=== PATIENT | male | born 1970 | race Caucasian/White ===

== ENCOUNTER 2020-01-24 16:14 | Emergency (ER) | payer MEDICARE, SELFPAY ==
[2020-01-24 16:33] VITALS: BP 112/91; PULSE 60; RESP 14; TEMP 37.2; O2SAT 99
--- NOTE | 2020-01-24 17:29 | ED.LOWEXIN ---
HPI - Extremity Injury (Lower) General Chief Complaint: Extremity Injury, Lower Stated Complaint: left leg pain Time Seen by Provider: 01/24/20 17:29 Source: patient and RN notes reviewed Mode of arrival: ambulatory Limitations: no limitations History of Present Illness HPI Narrative: 49-year-old male presents concern for left leg pain. Reports pain starts in the left posterior calf, goes down to be left Achilles area and radiates back of his left leg. Reports pain worsens with walking and is tender to touch. He denies redness, swelling. Denies any known injury, however reports he is very active in his work. Reports he has been using an Lucien wrap which offer some relief. MD complaint: other (Leg pain) Related Data Allergies Allergy/AdvReac Type Severity Reaction Status Date / Time No Known Allergies Allergy Verified 01/24/20 16:50 Review of Systems Review of Systems: Narrative: CONSTITUTIONAL: Denies malaise, chills, sweats, or fever. CARDIOVASCULAR: Denies chest pain, palpitations, or edema. RESPIRATORY: Denies cough or dyspnea. SKIN: Denies redness, swelling, bruising, open skin MUSCULOSKELETAL: Reports left leg pain NEUROLOGIC: Denies numbness, weakness All systems reviewed & are unremarkable except as noted in HPI and below PMFSH Past Medical History Medical History (Updated 01/24/20 @ 17:36 by Syeda Garcia NP) Anxiety Chronic fatigue, unspecified Family history of early CAD History of CVA (cerebrovascular accident) History of hypoglycemia Social History Social History Smoking status: Current every day smoker Alcohol intake: current Comments At time of signature, agree with nursing past medical, surgical, social and family history. There is no relevant family history pertinent to the presenting complaint Exam Narrative: Exam Narrative: GENERAL: Well-appearing, well-nourished, and in no acute distress. HEAD: Normocephalic, atraumatic. EYES: PERRLA, conjunctivae clear NECK: Supple. CHEST: Speaks in full sentences. No respiratory distress. HEART: Regular rate and rhythm. Normal and equal peripheral pulses. EXTREMITIES: Left leg, knee, ankle, digits have normal strength and sensation, normal range of motion. No edema or ecchymosis. 5/5 strength with knee, ankle, digits flexion and extension. Normal sensation with sensitivity to light touch and pain. No open wounds, no skin tenting, no devitalized tissue or atrophy, no trophic changes, no obvious deformity, alignment normal, no point tenderness, nearby joints and structures intact. Distal pulses palpable and equal bilaterally, skin warm, dry, pink. Capillary refill less than 3 seconds. Pain with full extension of leg, generalized posterior knee, calf tenderness. Pain reproducible SKIN: Warm, dry, no rash. No calf erythema, warmth, edema NEURO: Alert and oriented x3. PSYCH: Normal mood and affect Course Course Emergency Course: Patient is aware of diagnosis, understands and agrees to treatment plan. Anticipatory guidance given. Patient agrees to follow-up as directed and is aware of reasons to seek care at the emergency department. Portions of this record may have been created with voice recognition software Vital Signs Vital signs: Vital Signs Temperature 98.9 F 01/24/20 16:33 Pulse Rate 60 01/24/20 16:33 Respiratory Rate 14 01/24/20 16:33 Blood Pressure 112/91 H 01/24/20 16:33 Pulse Oximetry 99 01/24/20 16:33 Temperature 98.9 F 01/24/20 16:33 Pulse Rate 60 01/24/20 16:33 Respiratory Rate 14 01/24/20 16:33 Blood Pressure 112/91 H 01/24/20 16:33 Pulse Oximetry 99 01/24/20 16:33 Reviewed. MDM - Extremity Injury (Lower) MDM Narrative Medical decision making narrative: Patients pain is consistent with musculoskeletal etiology. No signs of neurological or vascular compromise on exam. Compartments and tissues are soft without signs of compartment syndrome. Pain is felt appropriate for further evaluation on an outp
== END 2020-01-24 17:43 | disposition home or self-care (01) ==
PROVIDERS: Emergency Provider Nurse Practitioner
DX: M79.662 Pain in left lower leg (principal); F17.290 Nicotine dependence, other tobacco product, uncomplicated; J44.9 Chronic obstructive pulmonary disease, unspecified
CPT/HCPCS: 99213; G0463

== ENCOUNTER 2020-02-03 13:45 | Outpatient (CLI) | payer MEDICARE, SELFPAY ==
--- NOTE | ~2020-02-03 | MR_ITS ---
EXAMINATION: MR lumbar spine wo con DATE: 02/03/2020 17:23 INDICATION: Chronic low back pain and 5 weeks of left leg pain. TECHNIQUE: Magnetic resonance imaging (MRI) of the lumbar spine was performed without intravenous con trast. Sequences included sagittal T2-weighted FSE, sagittal T2-weighted FS FSE, sagittal T1-weighted FSE, and axial T2-weighted FSE. COMPARISON: None FINDINGS: Millimeter retrolisthesis L5 on S1. Vertebral body heights are normal. Normal marrow signal. Mild di sc desiccation with normal disc height at L4-L5. More prominent disc desiccation and moderate disc he ight loss at L5-S1 where there is also an annular fissure and posterior disc extrusion with disc mate rial bulging a few millimeter cranial and caudal to the level of the endplates. The conus medullaris terminates at T12. There is normal signal in the caudal spinal cord. Paravertebral soft tissues are u nremarkable. A millimeter T2 hyperintense likely cyst in the left kidney. The following disc levels a re specifically discussed: T12-L1: The disc does not extend beyond the endplate margin. There is mild right facet joint osteoart hritis. There is no neural foraminal stenosis. There is no central canal stenosis. L1-L2: The disc does not extend beyond the endplate margin. There is mild right and minimal left face t joint osteoarthritis. There is no neural foraminal stenosis. There is no central canal stenosis. L2-L3: The disc does not extend beyond the endplate margin. There is mild bilateral facet joint osteo arthritis. There is no neural foraminal stenosis. There is no central canal stenosis. L3-L4: The disc does not extend beyond the endplate margin. There is mild bilateral facet joint osteo arthritis. There is no neural foraminal stenosis. There is no central canal stenosis. L4-L5: Annular fissure at the right foraminal zone with associated mild disc protrusion. There is mil d bilateral facet joint osteoarthritis. There is mild bilateral neural foraminal stenosis. There is n o central canal stenosis. L5-S1: Disc is bulging with superimposed disc extrusion centered in the left paracentral region which exerts narrows the left lateral recess and exerts mass effect upon the traversing left S1 nerve root . The region of the extrusion measures approximately 2 cm medial to lateral, 8 mm AP and 10 mm cranio caudal. There is mild bilateral facet joint osteoarthritis. There is mild right and mild to moderate left neural foraminal stenosis. There is minimal central canal stenosis. IMPRESSION: 1. Moderate spondylosis at the lumbosacral junction most notable for a large left paracentral disc ex trusion which narrows the left lateral recess exerting mass effect upon the traversing left S1 nerve root. Correlate clinically for muscle weakness of plantar flexion, sensory change of the lateral foot and small toe, and depressed ankle reflex. 2. Minimal spondylosis in the more cephalad lumbar spine. Reviewed, dictated and finalized at location A. IMPRESSION: 1. Moderate spondylosis at the lumbosacral junction most notable for a large le ft paracentral disc extrusion which narrows the left lateral recess exerting ma ss effect upon the traversing left S1 nerve root. Correlate clinically for musc le weakness of plantar flexion, sensory change of the lateral foot and small to e, and depressed ankle reflex. 2. Minimal spondylosis in the more cephalad lumbar spine.
--- NOTE | 2020-02-03 14:33 | ECG_ITS ---
Measurements Intervals Ashley Rate: 74 P: 64 PA: 137 QRS: 78 QRSD: 79 T: 74 QT: 348 QTc: 387 Interpretive Statements SINUS RHYTHM WITH SINUS ARRHYTHMIA NORMAL ECG Electronically Signed On 02-03-2020 14:54:03 CDT by Guy Gordon D.O.
== END 2020-02-03 13:46 | disposition home or self-care (01) ==
PROVIDERS: PCP Family Medicine; Visit Provider Internal Medicine Cardiovascular Disease
DX: R53.83 Other fatigue (principal); M54.16 Radiculopathy, lumbar region; M79.605 Pain in left leg; M47.816 Spondylosis without myelopathy or radiculopathy, lumbar region
CPT/HCPCS: 72148; 93005

== ENCOUNTER 2020-04-06 08:25 | Outpatient (CLI) | payer MEDICARE, SELFPAY ==
--- NOTE | ~2020-04-06 | NM_ITS ---
EXAMINATION: NM paulina stress w perfusion DATE: 04/06/2020 12:22 WILDLIFE CONSERVATION OFFICER INDICATION: Dyspnea TECHNIQUE: Rest images were obtained following intravenous administration of 10 mCi Tc99m tetrofosmin (Myoview). The patient was infused intravenously with Lexiscan (regadenoson). Then, 30.8 mCi Tc99m t etrofosmin (Myoview) was administered intravenously, and stress images were obtained. Data was recons tructed into short axis and horizontal and vertical long axis SPECT images. Gated SPECT images were a lso obtained. COMPARISON: None. FINDINGS: There is no definite reversible or fixed perfusion abnormality to suggest ischemia or infar ction. There is no segmental wall motion abnormality. Left ventricular ejection fraction measures 7 2%. IMPRESSION: 1. No definite ischemia or infarct. 2. Normal left ventricular ejection fraction measuring 72%. Reviewed, dictated and finalized at location B. LIFE CONSERVATION OFFICER
--- NOTE | 2020-04-06 08:31 | ECHO_ITS ---
Patient Info Name: Van Rodriguez Age: 49 years : 1970 Gender: Male Ht: 69 in Wt: 180 lbs BSA: 2.01 m2 HR: 58 bpm BP: 109 / 72 mmHg Technical Quality: Good Exam Date: 04/06/2020 8:42 AM Exam Location: [facility] Patient Status: Outpatient Admit Date: 04/06/2020 Staff Ordering Physician: Guy Gordon DO Furnace Installer Helper: Tina Osman RCS Attending Provider: Guy Gordon DO Referring Physician: Evan FERNANDEZ; Exam Type: CA echo doppler color flow Study Info Indications - family hx/o hrt dz copd cva Complete two-dimensional, color flow and Doppler transthoracic echocardiogram is performed. Summary 1. Complete two-dimensional, color flow and Doppler transthoracic echocardiogram is performed. 2. Left ventricular chamber dimension is normal. 3. Left ventricular systolic function is normal, estimated at 60-65%. 4. The left ventricular diastolic function is normal. 5. E/e' 6 is not elevated. 6. Global longitudinal strain is normal at -20.3%. 7. No pulmonary hypertension, estimated pulmonary arterial systolic pressure is 31 mmHg. Left Ventricle E/e' 6 is not elevated. Global longitudinal strain is normal at -20.3%. Left ventricular chamber dimension is normal. Left ventricular systolic function is normal, estimated at 60-65%. The left ventricular diastolic function is normal. Right Ventricle Right ventricular chamber dimension is normal. Right ventricular systolic function is normal. Left Atria Left atrial chamber dimension is normal. Right Atria Right atrial chamber dimension is normal. Aortic Valve The aortic valve is trileaflet. There is no aortic valve stenosis. There is no aortic valve regurgitation. Pulmonic Valve There is no pulmonic regurgitation. Mitral Valve There is no mitral valve stenosis. There is no mitral valve regurgitation. Tricuspid Valve There is no tricuspid valve regurgitation. No pulmonary hypertension, estimated pulmonary arterial systolic pressure is 31 mmHg. Pericardium/Pleural There is no pericardial effusion. Inferior Vena Cava Normal inferior vena cava with >50% collapse upon inspiration consistent with normal right atrial pressure, 5 mmHg. Aorta The aortic root size at the sinus of Valsalva is normal. Left Ventricular Outflow Tract Name Value Normal LVOT 2D LVOT Diameter 2.1 cm LVOT Doppler LVOT Peak Gradient 7 mmHg LVOT Mean Gradient 3 mmHg LVOT VTI 28 cm LVOT VTI/AV VTI Ratio 1.0 LVOT Stroke Volume 96 ml LVOT CO 17.6 l/min LVOT CI 8.8 l/min/m2 Pulmonic Valve Name Value Normal PV Doppler PV Peak Gradient 3 mmHg Mitral Valve -
--- NOTE | 2020-04-06 08:31 | EST_ITS ---
Patient Info Name: Van Rodriguez Age: 49 years : 1970 Gender: Male Ht: 69 in Wt: 190 lbs BSA: 2.07 m2 Exam Date: 04/06/2020 10:38 AM Patient Status: Outpatient Admit Date: 04/06/2020 Staff Ordering Physician: Guy Gordon DO Attending Provider: Guy Gordon DO Exercise Technologist: Yesy Gray RDCS Exercise Physician: Guy Gordon DO Exam Type: CA stress paulina w NM Study Info Indications R06.00 - Dyspnea, unspecified A regadenoson stress test was performed. Summary 1. 1. Negative lexiscan stress test for ischemic ST changes by ECG criteria. 2. 2. Stable hemodynamics throughout the test. 3. 3. Nuclear scan to follow and will be reported separately. Please correlate with it. 4. 4. Patient informed of the above results. Protocol: Lexiscan Stress ECG Details Stage: REST Duration (min): 3 min : 54 sec HR (bpm): 55 SBP (mmHg): 109 DBP (mmHg): 66 Stage: REST Duration (min): 8 min : 17 sec HR (bpm): 62 SBP (mmHg): 109 DBP (mmHg): 66 Stage: STAGE 1 Duration (min): 0 min : 59 sec HR (bpm): 104 SBP (mmHg): 120 DBP (mmHg): 72 Stage: RECOVERY Duration (min): 1 min : 0 sec HR (bpm): 97 SBP (mmHg): 120 DBP (mmHg): 79 Stage: RECOVERY Duration (min): 2 min : 0 sec HR (bpm): 89 SBP (mmHg): 120 DBP (mmHg): 79 Stage: RECOVERY Duration (min): 3 min : 0 sec HR (bpm): 95 SBP (mmHg): 101 DBP (mmHg): 66 Stage: RECOVERY Duration (min): 3 min : 3 sec HR (bpm): 97 SBP (mmHg): 101 DBP (mmHg): 66 Rest HR: 62 bpm Peak HR: 107 bpm Rest Sys BP: 109 mmHg Peak Sys BP: 120 mmHg Max Pred HR: 170 bpm % Max Pred HR: 63 % Target HR: 145 bpm Max RPP: 12,840 bpm*mmHg Termination Reason: Completed protocol Cardiac Symptoms: Shortness of breath Total Time: 1 min : 0 sec Rest Mendoza BP: 66 mmHg Peak Mendoza BP: 79 mmHg Total Dose: 0.4 mg Resting ECG Sinus rhythm. Stress ECG No ST changes. Arrhythmias None. Report Signatures
== END 2020-04-06 08:26 | disposition home or self-care (01) ==
PROVIDERS: PCP Family Medicine; Visit Provider Internal Medicine Cardiovascular Disease
DX: R06.00 Dyspnea, unspecified (principal)
CPT/HCPCS: 78452; 93017; 93306; A9502; J2785

== ENCOUNTER 2020-04-26 06:54 | Outpatient (CLI) | payer MEDICARE, SELFPAY ==
--- NOTE | ~2020-04-26 | MR_ITS ---
EXAMINATION: MR cervical spine wo con EXAM DATE: 04/26/2020 08:26 INDICATION: Cervical myelopathy . TECHNIQUE: Multi-sequential, multiplanar MR images of the cervical spine were obtained without contra st. Axial T2, axial T2 MERGE sequence. Sagittal T1, T2, T2 fat saturation images also obtained. Th ere is no prior study for comparison. FINDINGS: Vertebral body and disc heights are well-maintained. There are no suspicious marrow signal abnormalit ies. The spinal cord signal intensity and intrinsic morphology is normal. Cervicomedullary junction i s normal in appearance. Paraspinal soft tissue is unremarkable. Level by level evaluation: C2-C3: Disc does not extend beyond the endplate margin. Uncovertebral joint arthropathy: None. Facet joint arthropathy: Mild. Neural foraminal stenosis: No stenosis. Central canal stenosis: No stenosis. C3-C4: Disc does not extend beyond the endplate margin. Uncovertebral joint arthropathy: None. Facet joint arthropathy: Mild to moderate left, mild right. Neural foraminal stenosis: No stenosis. Central canal stenosis: No stenosis. C4-C5: Disc does not extend beyond the endplate margin. Uncovertebral joint arthropathy: None. Facet joint arthropathy: Moderate left, mild to moderate right. Neural foraminal stenosis: No stenosis. Central canal stenosis: No stenosis. C5-C6: Disc does not extend beyond the endplate margin. Uncovertebral joint arthropathy: None. Facet joint arthropathy: Mild to moderate bilateral. Neural foraminal stenosis: No stenosis. Central canal stenosis: No stenosis. C6-C7: Disc does not extend beyond the endplate margin. Uncovertebral joint arthropathy: Mild bilateral. Facet joint arthropathy: Mild bilateral. Neural foraminal stenosis: Mild bilateral. Central canal stenosis: No stenosis. C7-T1: Disc does not extend beyond the endplate margin. Uncovertebral joint arthropathy: None. Facet joint arthropathy: None. Neural foraminal stenosis: No stenosis. Central canal stenosis: No stenosis. IMPRESSION: 1. Mild to moderate cervical facet arthropathy. Reviewed, dictated and finalized at location B. ROOM ATTENDANT
== END 2020-04-26 06:55 | disposition home or self-care (01) ==
PROVIDERS: PCP Family Medicine
DX: G95.9 Disease of spinal cord, unspecified (principal); M47.812 Spondylosis without myelopathy or radiculopathy, cervical region
CPT/HCPCS: 72141

== ENCOUNTER 2020-05-22 13:22 | Outpatient (CLI) | payer MEDICARE, SELFPAY ==
--- NOTE | ~2020-05-22 | XR_ITS ---
EXAMINATION: XR chest 2V DATE: 05/22/2020 13:34 INDICATION: Cough and weakness TECHNIQUE: PA and lateral views of the chest were obtained. COMPARISON: Chest radiograph dated 10/02/2017 FINDINGS: The lungs remain clear with no focal airspace opacities, pulmonary edema, pleural effusion or pneumot horax. The cardiomediastinal silhouette is normal. Visualized bones and soft tissues are unremarkable . IMPRESSION: 1. No acute cardiopulmonary disease. Reviewed, dictated and finalized at location A. LE DEPARTMENT WORKER
== END 2020-05-22 13:23 | disposition home or self-care (01) ==
LOC: ANHBWCIMG 13:25
PROVIDERS: PCP Family Medicine; Visit Provider Family Medicine
DX: R05 Cough (principal)
CPT/HCPCS: 71046

== ENCOUNTER 2020-10-31 14:59 | Outpatient (CLI) | payer MEDICARE, SELFPAY ==
--- NOTE | ~2020-10-31 | MR_ITS ---
EXAMINATION: MR lumbar spine wo con DATE: 10/31/2020 15:42 INDICATION: Lumbago. TECHNIQUE: Magnetic resonance imaging (MRI) of the lumbar spine was performed without intravenous con trast. Sequences included sagittal T2-weighted FSE, sagittal T2-weighted FS FSE, sagittal T1-weighted FSE, and axial T2-weighted FSE. COMPARISON: Lumbar spine MRI 02/03/2020 FINDINGS: There is 3 mm retrolisthesis of L5 on S1. Vertebral body heights are normal. There is moder ately decreased disc height at L5-S1 with endplate remodeling. The distal spinal cord signal intensit y is normal. The conus medullaris is at T12. There is a 10 mm cyst in left kidney. The following disc levels are specifically discussed: L1-L2: The disc does not extend beyond the endplate margin. There is no facet joint osteoarthritis. T here is no neural foraminal stenosis. There is no central canal stenosis. L2-L3: The disc does not extend beyond the endplate margin. There is mild bilateral facet joint osteo arthritis. There is no neural foraminal stenosis. There is no central canal stenosis. L3-L4: The disc does not extend beyond the endplate margin. There is mild bilateral facet joint osteo arthritis. There is no neural foraminal stenosis. There is no central canal stenosis. L4-L5: The disc is mildly bulging and has an annular fissure. There is mild bilateral facet joint ost eoarthritis. There is mild bilateral neural foraminal stenosis. There is no central canal stenosis. L5-S1: The disc is bulging and has an annular fissure. There is no facet joint osteoarthritis. There is mild bilateral neural foraminal stenosis. There is mild central canal stenosis. IMPRESSION: 1. Moderate lower lumbar spondylosis with interval improvement at L5-S1. Reviewed, dictated and finalized at location A.
== END 2020-10-31 15:00 | disposition home or self-care (01) ==
PROVIDERS: PCP Family Medicine
DX: M54.5 Low back pain (principal); M47.816 Spondylosis without myelopathy or radiculopathy, lumbar region
CPT/HCPCS: 72148